=== PATIENT | female | born 1975 | race Caucasian/White ===

== ENCOUNTER 2020-12-06 14:04 | Emergency (ER) | payer SELFPAY ==
[~2020-12-06] VITALS: Ht 170.2 cm; Wt 75.0 kg
[2020-12-06] MEDS ORDERED: LORAZEPAM 1MG TABLET PO ONE (17:45)
[2020-12-06] MEDS ORDERED: SODIUM CHLORIDE 0.9% 1,000 ML IV ONE ×2 (17:45→20:15)
[2020-12-06 18:42] LABS: BASOPHILS % 0.5 % (0.0-2.0); EOSINOPHILS % 0.4 % (0.0-5.0); HEMATOCRIT. 34.2 % (36.0-48.0); HEMOGLOBIN. 11.8 g/dL (12.0-16.0); LYMPHOCYTES % 19.9 % (20.0-50.0); MEAN CORPUSCULAR HEMOGLOBIN 29.4 pg (28.0-32.0); MEAN CORPUSCULAR VOLUME 85.2 fL (81.0-99.0); MEAN PLATELET VOLUME 8.6 fl (7.4-10.4); MONOCYTES % 6.4 % (2.0-8.0); NEUTROPHILS % 72.8 % (40.0-76.0); PLATELET 267 x1000/uL (130-400); RED BLOOD CELL COUNT 4.01 mill/uL (4.2-5.4); RED CELL DISTRIBUTION WIDTH 13.5 % (11.6-14.6)
[2020-12-06 18:46] LABS: CHLORIDE 106 mEq/L (98-107)
[2020-12-06 18:50] LABS: ETHANOL BLOOD < 10 mg/dL
[2020-12-06] MEDS ORDERED: MECL-159 MT (20:06)
[2020-12-06] MEDS ORDERED: MECLIZINE 25MG TABLET PO ONE (20:15)
[2020-12-06 21:30] VITALS: BP 121/70
== END 2020-12-06 21:52 | disposition home or self-care (01) ==
LOC: ER 14:04
DX: R42 Dizziness and giddiness (principal); E86.0 Dehydration; E11.65 Type 2 diabetes mellitus with hyperglycemia
CPT/HCPCS: 36415; 80053; 80320; 85025; 93005; 96360; 96361; 99284; J7030; J8597; G0480